=== PATIENT | male | born 1945 | race Caucasian/White ===

== ENCOUNTER 2018-05-27 00:21 | Emergency (ER) | payer MEDICARE, BC, OTHER ==
[~2018-05-27] VITALS: Ht 177.8 cm; Wt 96.0 kg
[2018-05-27 00:26] VITALS: BP 128/92
[2018-05-27] MEDS ORDERED: LIDO5CRE18 TOP (01:57)
== END 2018-05-27 02:09 | disposition home or self-care (01) ==
LOC: ER 00:21
DX: K64.9 Unspecified hemorrhoids (principal); I10 Essential (primary) hypertension; Z79.899 Other long term (current) drug therapy
CPT/HCPCS: 99283

== ENCOUNTER 2019-07-29 19:37 | Emergency (ER) | payer MEDICARE, BC ==
[~2019-07-29] VITALS: Ht 177.8 cm; Wt 97.3 kg
[~2019-07-29 19:37] MED LIST: LIDO5CRE18 TOP
[2019-07-29] MEDS ORDERED: normal saline 1000ML IV soln IVB ONE (19:40)
[2019-07-29 20:11] LABS: BASOPHILS % (AUTO) 0.5 % (0-1); EOSINOPHILS # (AUTO) 0.1 X10'3 (0-0.9); EOSINOPHILS % (AUTO) 0.9 % (0-6); HEMATOCRIT 45.1 % (42.0-52.0); LYMPHOCYTES # (AUTO) 1.2 X10'3 (1.1-4.8); MEAN CORPUSCULAR HGB CONC 35.5 g/dL (33.0-36.5); MEAN CORPUSCULAR VOLUME 84.5 FL (78-98); MONOCYTES % (AUTO) 12.7 % (2-12); NEUTROPHILS # (AUTO) 5.7 X10'3 (1.8-7.7); NEUTROPHILS % (AUTO) 70.9 % (42-75); PLATELET COUNT 186 X10'3 (140-440); RED BLOOD COUNT 5.34 X10'6 (4.70-6.10); RED CELL DISTRIBUTION WIDTH 13.7 % (11.5-14.5); WHITE BLOOD COUNT 8.1 X10'3 (4.5-11.0)
[2019-07-29 20:24] LABS: ALANINE AMINOTRANSFERASE 30 U/L (12-78); ALBUMIN 4.1 G/DL (3.4-5.0); ALKALINE PHOSPHATASE 67 IU/L (46-116); ANION GAP 12 (8-16); ASPARTATE AMINO TRANSFERASE 22 U/L (10-37); BILIRUBIN,TOTAL 0.8 MG/DL (0.1-1.0); BLOOD UREA NITROGEN 19 MG/DL (7-18); BUN/CREATININE RATIO 16.4 (5.4-32.0); CALCIUM 9.9 MG/DL (8.5-10.1); CHLORIDE 102 MMOL/L (99-107); CREATININE 1.16 MG/DL (0.60-1.10); GLUCOSE 110 MG/DL (70-104); POTASSIUM 3.8 MMOL/L (3.5-5.1); SODIUM 138 MMOL/L (135-145); TOTAL CARBON DIOXIDE 24.1 MMOL/L (24-32); TOTAL PROTEIN 8.1 G/DL (6.4-8.2); eGFR 61 ML/MIN
[2019-07-29 20:44] LABS: CLARITY,URINE CLOUDY (Clear); COLOR,URINE YELLOW (Yellow); GLUCOSE, URINE NEGATIVE (Neg); KETONES,URINE NEGATIVE (Neg); LEUKOCYTE ESTERASE ,URINE NEGATIVE (Neg); NITRITES, URINE NEGATIVE (Neg); OCCULT BLOOD,URINE LARGE (Neg); PH,URINE 6.5 (4.8-8.0); PROTEIN,URINE NEGATIVE (Neg); UA COLLECTION TYPE FOLEY CATH; UROBILINOGEN,URINE 0.2 E.U/dL (0.2-1.0)
[2019-07-29 20:54] LABS: SQUAMOUS EPITHELIAL CELL,UR FEW /LPF (FEW)
[2019-07-29 20:55] LABS: BACTERIA,URINE NONE SEEN /HPF (Neg); RBC,URINE TNTC /HPF (0-2); WBC,URINE 0-4 /HPF (0-4)
[2019-07-29 21:28] VITALS: BP 115/78
== END 2019-07-29 21:30 | disposition home or self-care (01) ==
LOC: ER 19:37
DX: R33.9 Retention of urine, unspecified (principal); R30.9 Painful micturition, unspecified; R39.198 Other difficulties with micturition; I10 Essential (primary) hypertension; Z79.899 Other long term (current) drug therapy; Z87.19 Personal history of other diseases of the digestive system
CPT/HCPCS: 36415; 51702; 80053; 81001; 85025; 99284; J7030

== ENCOUNTER 2019-07-30 07:57 | Emergency (ER) | payer MEDICARE, BC ==
[~2019-07-30] VITALS: Ht 177.8 cm; Wt 96.8 kg
[2019-07-30] MEDS ORDERED: HYDROcodone/acetaminophen 5mg/325mg tablet PO ONE (08:25)
--- NOTE | 2019-07-30 09:50 | NUR ---
IRRIGATE BLADDER MANUALLY WITH ONE LITER NS. ABLE TO WITHDRAW BACK THE IRRIGATION FLUID THAT IS LIGHT PINK, NO CLOTS. BLADDER SCAN 490 ML AFTER IRRIGATION. NO URINE IS COMING OUT THROUGH THE CATHETER. URINE IS COMING OUT AROUND THE CATHETER.
[2019-07-30] MEDS ORDERED: normal saline 1000ML IV soln IVB ONE (10:20)
[2019-07-30] MEDS ORDERED: LORazepam 2 mg/ml vial IV ONE (10:20)
[2019-07-30] MEDS: morphine 2 MG/ML inj. syringe IV PRN ×2 (10:34→11:20)
[2019-07-30] MEDS ORDERED: iohexol 300mg/ml 100ml inj. ONE (10:38)
--- NOTE | 2019-07-30 10:43 | NUR ---
PT MEDICATED WITH MORPHINE FOR PAIN, LABS DRAWN AND PT TAKEN OUT TO CT VIA GURNEY BY TECH.
[2019-07-30 10:51] LABS: BASOPHILS # (AUTO) 0.1 X10'3 (0-0.2); BASOPHILS % (AUTO) 0.7 % (0-1); EOSINOPHILS # (AUTO) 0.1 X10'3 (0-0.9); EOSINOPHILS % (AUTO) 0.6 % (0-6); HEMATOCRIT 44.2 % (42.0-52.0); HEMOGLOBIN 15.4 g/dl (14.0-17.9); LYMPHOCYTES # (AUTO) 0.9 X10'3 (1.1-4.8); LYMPHOCYTES % (AUTO) 10.9 % (21-51); MEAN CORPUSCULAR HEMOGLOBIN 29.6 PG (27.0-31.0); MEAN CORPUSCULAR HGB CONC 34.7 g/dL (33.0-36.5); MEAN CORPUSCULAR VOLUME 85.2 FL (78-98); MEAN PLATELET VOLUME 6.9 FL (7.4-10.4); MONOCYTES # (AUTO) 0.9 X10'3 (0-0.9); NEUTROPHILS # (AUTO) 6.4 X10'3 (1.8-7.7); NEUTROPHILS % (AUTO) 76.8 % (42-75); PLATELET COUNT 173 X10'3 (140-440); RED BLOOD COUNT 5.19 X10'6 (4.70-6.10); RED CELL DISTRIBUTION WIDTH 13.3 % (11.5-14.5); WHITE BLOOD COUNT 8.3 X10'3 (4.5-11.0)
[2019-07-30 11:06] LABS: ALANINE AMINOTRANSFERASE 26 U/L (12-78); ALBUMIN 3.6 G/DL (3.4-5.0); ALBUMIN/GLOBULIN RATIO 0.9 (1.1-1.5); ALKALINE PHOSPHATASE 61 IU/L (46-116); ANION GAP 8 (8-16); ASPARTATE AMINO TRANSFERASE 21 U/L (10-37); BILIRUBIN,TOTAL 0.9 MG/DL (0.1-1.0); BLOOD UREA NITROGEN 13 MG/DL (7-18); BUN/CREATININE RATIO 12.6 (5.4-32.0); CALCIUM 9.1 MG/DL (8.5-10.1); CHLORIDE 105 MMOL/L (99-107); CREATININE 1.03 MG/DL (0.60-1.10); GLUCOSE 104 MG/DL (70-104); POTASSIUM 3.6 MMOL/L (3.5-5.1); SODIUM 138 MMOL/L (135-145); TOTAL CARBON DIOXIDE 24.8 MMOL/L (24-32); TOTAL PROTEIN 7.4 G/DL (6.4-8.2); eGFR 70 ML/MIN
--- NOTE | 2019-07-30 12:09 | NUR ---
REMOVE PTS TORRES CATHER THAT PT HAD UPON ARRIVAL DUE TO NO URINE DRAINAGE. FC IS REMOVED A LARGE BLOOD CLOT COMES OUT AND THEN THE BLADDER IS DRAINED BY RN. REINSERT A 3 WAY 24 GUAGE CATHETER FOR IRRIGATION. BEGIN IRRIGATION WITH A 3000 ML BAG OF SALINE. URINE IS LIGHT PINK W/O ANY CLOTS.
--- NOTE | 2019-07-30 12:30 | NUR ---
PT HAS HIS OWN BOTTLE OF KEFLEX WITH HIM AND ADMINISTER HIS DOSE THAT IS DUE NOW. VALDO TODD.
[2019-07-30 13:05] VITALS: BP 119/74
== END 2019-07-30 13:07 | disposition home or self-care (01) ==
LOC: ER 07:57
DX: T83.098A Other mechanical complication of other urinary catheter, initial encounter (principal); R33.8 Other retention of urine; R31.9 Hematuria, unspecified; I10 Essential (primary) hypertension; Z79.899 Other long term (current) drug therapy; Y84.6 Urinary catheterization as the cause of abnormal reaction of the patient, or of later complication, without mention of misadventure at the time of the procedure; Y92.89 Other specified places as the place of occurrence of the external cause
CPT/HCPCS: 36415; 51700; 74177; 80053; 85025; 96374; 96376; 99284; J2270; J7030; Q9967

== ENCOUNTER 2019-08-03 02:04 | Emergency (ER) | payer MEDICARE, BC ==
[~2019-08-03] VITALS: Ht 177.8 cm; Wt 96.8 kg
[2019-08-03] MEDS ORDERED: normal saline 1000ML IV soln IVB ONE (02:35)
--- NOTE | 2019-08-03 03:00 | NUR ---
bladder scan showing [address] c[address] (in place user acceptance tester) irrigated with sterile water and some small clots noted. then cbi started. dr waitefs at bedside to reevaluate.
--- NOTE | 2019-08-03 04:13 | NUR ---
cbi continues, nw running clear no clots noted.
[2019-08-03 05:14] VITALS: BP 127/80
== END 2019-08-03 05:16 | disposition home or self-care (01) ==
LOC: ER 02:04
DX: R31.9 Hematuria, unspecified (principal); T83.098A Other mechanical complication of other urinary catheter, initial encounter; I10 Essential (primary) hypertension; Y92.89 Other specified places as the place of occurrence of the external cause
CPT/HCPCS: 51700; 99284; J7030

== ENCOUNTER 2019-08-03 11:05 | Emergency (ER) | payer MEDICARE, BC ==
[~2019-08-03] VITALS: Ht 177.8 cm; Wt 96.8 kg
[2019-08-03 11:45] VITALS: BP 172/94
--- NOTE | 2019-08-03 12:18 | NUR ---
Bladder scan showed 610ml in bladder.
--- NOTE | 2019-08-03 13:00 | NUR ---
PT UP TO BR FOR BM. PT STATES WHEN HE SAT TO HAVE A BM "ALL OF A SUDDEN THE CATHATER STARTED FLOWING" PT STATES HE SAW SOME CLOTS. LIGHT PINK URINE NOTED IN TUBE
--- NOTE | 2019-08-03 13:33 | NUR ---
CATH IRRIGATED WITH 60ML OF NS WITH OUT DIFFICULITY.
--- NOTE | 2019-08-03 14:54 | NUR ---
DR SORENSEN IN TO SEE PT, SHE CHANGED CATH, IRRIGATED IT MULTIPLE TIMES. PT STATES PAIN IMPROVED AFTER CATH CHANGE. PINK URINE DRAINING WELL FROM CATH
== END 2019-08-03 15:15 | disposition home or self-care (01) ==
LOC: ER 11:06
DX: T83.84XA Pain due to genitourinary prosthetic devices, implants and grafts, initial encounter (principal); R33.9 Retention of urine, unspecified; I10 Essential (primary) hypertension; Z79.899 Other long term (current) drug therapy; Y84.6 Urinary catheterization as the cause of abnormal reaction of the patient, or of later complication, without mention of misadventure at the time of the procedure; Y92.89 Other specified places as the place of occurrence of the external cause
CPT/HCPCS: 51700; 51702; 99284

== ENCOUNTER 2019-08-16 05:38 | Day surgery (SDC) | payer MEDICARE, BC ==
[2019-08-12 15:29] LABS: BASOPHILS # (AUTO) 0.1 X10'3 (0-0.2); BASOPHILS % (AUTO) 0.7 % (0-1); EOSINOPHILS # (AUTO) 0.2 X10'3 (0-0.9); EOSINOPHILS % (AUTO) 1.5 % (0-6); LYMPHOCYTES # (AUTO) 1.7 X10'3 (1.1-4.8); LYMPHOCYTES % (AUTO) 16.6 % (21-51); MEAN CORPUSCULAR HEMOGLOBIN 29.1 PG (27.0-31.0); MEAN CORPUSCULAR HGB CONC 35.1 g/dL (33.0-36.5); MEAN CORPUSCULAR VOLUME 82.9 FL (78-98); MEAN PLATELET VOLUME 6.8 FL (7.4-10.4); MONOCYTES % (AUTO) 10.4 % (2-12); NEUTROPHILS # (AUTO) 7.1 X10'3 (1.8-7.7); NEUTROPHILS % (AUTO) 70.8 % (42-75); PRE OP HEMATOCRIT 46.7 % (42.0-52.0); PRE OP HEMOGLOBIN 16.4 g/dL (14.0-17.9); PRE OP PLATELET COUNT 412 X10'3 (140-440); RED BLOOD COUNT 5.63 X10'6 (4.70-6.10); RED CELL DISTRIBUTION WIDTH 12.8 % (11.5-14.5)
[2019-08-12 15:39] LABS: PRE OP INR 1.1 INR; PRE OP PROTIME 11.3 SECONDS (9.0-12.0)
[2019-08-12 15:45] LABS: ALBUMIN 3.9 G/DL (3.4-5.0); ALKALINE PHOSPHATASE 74 IU/L (46-116); BLOOD UREA NITROGEN 22 MG/DL (7-18); BUN/CREATININE RATIO 17.2 (5.4-32.0); CALCIUM 9.4 MG/DL (8.5-10.1); CHLORIDE 100 MMOL/L (99-107); CREATININE 1.28 MG/DL (0.60-1.10); PRE OP ALT 35 U/L (30-65); PRE OP ANION GAP 7 (8-16); PRE OP AST 20 U/L (10-37); PRE OP BILIRUB, TOTAL 0.7 MG/DL (0.0-1.0); PRE OP GLUCOSE 94 MG/DL (70-104); PRE OP POTASSIUM 3.8 MMOL/L (3.4-5.1); PRE OP SODIUM 134 MMOL/L (135-145); TOTAL CARBON DIOXIDE 27.5 MMOL/L (24-32); TOTAL PROTEIN 7.9 G/DL (6.4-8.2); eGFR 55 ML/MIN
[~2019-08-16] VITALS: Ht 177.8 cm; Wt 93.0 kg
[2019-08-16] VITALS (10 sets, daily range): BP systolic 101–121; BP diastolic 64–84
[~2019-08-16 05:38] MED LIST changes: +ATEN50TA PO; +DOCUMENT DATE & TIME OF BETA-BLOCKER PO ONE; +FINA5TAB11 PO; +FLO0.4C PO; +HYDR12.55 PO; -LIDO5CRE18 TOP; +QUIN10TA PO; +ceFAZolin 1GM/D5W- ADD-VANTAGE 50 ML IV ONE; +famotidine 20mg tablet PO ONE; +ringers solution, lacted 1,000 ML IV SCH
[2019-08-16] MEDS ORDERED: fentaNYL/PF 50MCG/1 ML 2ML syringe ONE (07:31)
[2019-08-16] MEDS ORDERED: MIDAZolam 5mg/5ml vial ONE (07:32)
[2019-08-16] MEDS ORDERED: ondansetron/PF 4mg/2ml inj IV PRN (08:10)
[2019-08-16] MEDS ORDERED: ringers solution, lacted 1,000 ML IV SCH (08:10)
[2019-08-16] MEDS ORDERED: morphine 4 MG/ML inj SYRINge IV PRN (08:10)
[2019-08-16] MEDS ORDERED: diphenhydrAMINE 50 mg/ml inj ONE (08:26)
[2019-08-16] MEDS ORDERED: meperidine/PF 50mg/ml syringe ONE (08:44)
--- NOTE | 2019-08-16 08:50 | NUR ---
Received from OR via , accompanied by Anesthesiologist CHAGO and report given by Anesthesiolgist. PATIENT A&OX4, DENIES PAIN, V/S WNL, SCD ON, 20G PIV RUE, PATIENT DENIES PAIN, 3 WAY F/C WITH FRANCISCO LIGHT CLEAR URINE
[2019-08-16] MEDS ORDERED: ceFAZolin 1000mg inj ONE (09:20)
--- NOTE | 2019-08-16 10:50 | NUR ---
PATIENT A&OX4, DENIES PAIN, V/S WNL, SCD OFF, 20G PIV RUE D/C, PATIENT DENIES PAIN, 3 WAY F/C WITH FRANCISCO LIGHT CLEAR URINE WITH LEG BAG ATTATCHED AND PATIENT GIVEN INSTRUCTION ON HOW TO USE AND CLEAN AND DRAIN LEG BAG AND HE HAS VERBALIZED UNDERSTANDING. I HAVE REVIEWED D/C INSTRUCTIONS WITH PATIENT AND FAMILYAND GIVEN THEM SCRIPTS FOR HOME AND THEY HAVE VERBALIZED UNDERSTANDING. PATIENT D/C HOME WITH ALL BELONGINGS AND FAMILY GAVE TRANSPORT HOME.
== END 2019-08-16 10:50 | disposition home or self-care (01) ==
LOC: PAS 05:38
PROVIDERS: ATTEND Student in an Organized Health Care Education/Training Program
DX: R31.0 Gross hematuria (principal); N32.89 Other specified disorders of bladder; I10 Essential (primary) hypertension; N40.1 Benign prostatic hyperplasia with lower urinary tract symptoms; R33.9 Retention of urine, unspecified; K21.9 Gastro-esophageal reflux disease without esophagitis; Z79.899 Other long term (current) drug therapy; Z87.891 Personal history of nicotine dependence
CPT/HCPCS: 36415; 52204; 80053; 82948; 85025; 85610; 85730; 93005; J0690; J1200; J2175; J2250; J3010; A4346; J7120

== ENCOUNTER 2019-09-24 02:44 | Emergency (ER) | payer MEDICARE, BC ==
[~2019-09-24] VITALS: Ht 177.8 cm; Wt 85.5 kg
[~2019-09-24 02:44] MED LIST changes: -DOCUMENT DATE & TIME OF BETA-BLOCKER PO ONE; -ceFAZolin 1GM/D5W- ADD-VANTAGE 50 ML IV ONE; -famotidine 20mg tablet PO ONE; -ringers solution, lacted 1,000 ML IV SCH
--- NOTE | 2019-09-24 03:15 | NUR ---
BLADDER SCAN SHOWED 529ML IN BLADDER, INFORMED DR NICK SHE ORDERED FOR A CATHETER TO BE PLACED. PATIENT REFUSED, STATING THAT HE ONLY WANTED DR SORENSEN HIS UROLOGIST TO PLACE A CATHETER AND REQUESTED TO SPEAK TO DR NICK. DR NICK AWARE
[2019-09-24] MEDS ORDERED: LIDOcaine 2% 10ml TOPICAL JELLY (Urojet) MM ONE (03:20)
[2019-09-24 03:23] LABS: CLARITY,URINE CLOUDY (Clear); COLOR,URINE YELLOW (Yellow); GLUCOSE, URINE NEGATIVE (Neg); KETONES,URINE NEGATIVE (Neg); LEUKOCYTE ESTERASE ,URINE LARGE (Neg); NITRITES, URINE NEGATIVE (Neg); OCCULT BLOOD,URINE LARGE (Neg); PROTEIN,URINE 30 mg/dl (Neg); UROBILINOGEN,URINE 0.2 E.U/dL (0.2-1.0)
[2019-09-24 03:40] LABS: UA COLLECTION TYPE CLN CATCH MIDSTREAM
[2019-09-24 04:18] LABS: BACTERIA,URINE 2+ /HPF (Neg); SQUAMOUS EPITHELIAL CELL,UR FEW /LPF (FEW); WBC,URINE 30-50 /HPF (0-4)
[2019-09-24 05:40] VITALS: BP 119/73
== END 2019-09-24 05:42 | disposition home or self-care (01) ==
LOC: ER 02:44
DX: R33.9 Retention of urine, unspecified (principal); R14.0 Abdominal distension (gaseous); I10 Essential (primary) hypertension; Z79.899 Other long term (current) drug therapy
CPT/HCPCS: 51702; 81001; 87088; 99284

== ENCOUNTER 2022-04-29 10:41 | Inpatient (IN) | payer OTHER, MEDICARE, BC ==
[~2022-04-29] VITALS: Ht 177.8 cm; Wt 97.6 kg
[2022-04-29] MEDS ORDERED: heparin 10,000 units/1 ML INJ IV ONE (11:10)
[2022-04-29] MEDS ORDERED: aspirin 325mg tablet PO ONE (11:10)
[2022-04-29] MEDS: HEPARIN SOD,PORK IN 0.45% NACL 250 ML IV SCH (11:41)
[2022-04-29] MEDS ORDERED: atorvastatin 20mg tablet PO STA (11:52)
[2022-04-29 12:01] LABS: BASOPHILS # (AUTO) 0.1 X10'3 (0-0.2); BASOPHILS % (AUTO) 1.2 % (0-1); EOSINOPHILS # (AUTO) 0.1 X10'3 (0-0.9); EOSINOPHILS % (AUTO) 1.9 % (0-6); HEMATOCRIT 45.9 % (42.0-52.0); HEMOGLOBIN 15.6 g/dl (14.0-17.9); LYMPHOCYTES # (AUTO) 1.5 X10'3 (1.1-4.8); LYMPHOCYTES % (AUTO) 19.8 % (21-51); MEAN CORPUSCULAR HEMOGLOBIN 28.9 PG (27.0-31.0); MEAN CORPUSCULAR HGB CONC 34.1 g/dL (33.0-36.5); MEAN CORPUSCULAR VOLUME 84.7 FL (78-98); MEAN PLATELET VOLUME 7.3 FL (7.4-10.4); MONOCYTES # (AUTO) 0.8 X10'3 (0-0.9); NEUTROPHILS % (AUTO) 66.1 % (42-75); PLATELET COUNT 208 X10'3 (140-440); RED BLOOD COUNT 5.42 X10'6 (4.70-6.10); RED CELL DISTRIBUTION WIDTH 14.4 % (11.5-14.5); WHITE BLOOD COUNT 7.6 X10'3 (4.5-11.0)
[2022-04-29 12:06] LABS: APTT 25 SECONDS (22-32)
[2022-04-29 12:08] LABS: ALANINE AMINOTRANSFERASE 38 U/L (12-78); ALBUMIN/GLOBULIN RATIO 1.2 (1.1-1.5); ALKALINE PHOSPHATASE 63 IU/L (46-116); ANION GAP 4 (8-16); ASPARTATE AMINO TRANSFERASE 32 U/L (10-37); BILIRUBIN,TOTAL 0.5 MG/DL (0.1-1.0); BLOOD UREA NITROGEN 20 MG/DL (7-18); BUN/CREATININE RATIO 18.9 (5.4-32.0); CALCIUM 8.9 MG/DL (8.5-10.1); CHLORIDE 107 MMOL/L (99-107); CREATININE 1.06 MG/DL (0.60-1.10); GLUCOSE 106 MG/DL (70-104); POTASSIUM 4.4 MMOL/L (3.5-5.1); SODIUM 138 MMOL/L (135-145); TOTAL CARBON DIOXIDE 27.1 MMOL/L (24-32); TOTAL PROTEIN 7.4 G/DL (6.4-8.2); eGFR 68 ML/MIN
[2022-04-29 12:12] LABS: MAGNESIUM 2.1 MG/DL (1.5-2.4)
[2022-04-29] MEDS ORDERED: POTASSIUM BICARB 20meq eff tab 20 MEQ TABLET.EFF PO PRN ×2 (12:35)
[2022-04-29] MEDS ORDERED: potassium CL 10mEq/100ml bag 100 ML IV PRN (12:35)
[2022-04-29] MEDS ORDERED: magnesium 2GM in 50ml NS 50 ML IV PRN (12:35)
[2022-04-29] MEDS ORDERED: magnesium 4gm in 100ml NS 100 ML IV PRN (12:35)
[2022-04-29] MEDS ORDERED: morphine 2 MG/ML inj. syringe IV PRN ×2 (12:35)
[2022-04-29] MEDS ORDERED: HEPARIN SOD,PORK IN 0.45% NACL 250 ML IV SCH (12:35)
[2022-04-29] MEDS ORDERED: acetaminophen 325mg tablet PO PRN (12:35)
[2022-04-29] MEDS ORDERED: ondansetron/PF 4mg/2ml inj IV PRN (12:35)
[2022-04-29] MEDS ORDERED: docusate sod 100mg capsule PO PRN (12:35)
[2022-04-29] MEDS ORDERED: mag hydrox/Alum hydrox/simeth 30ml oral suspension PO PRN (12:35)
[2022-04-29] MEDS: nitroGLYCERIN 0.4mg/hour patch TD SCH (13:59)
--- NOTE | 2022-04-29 14:36 | NUR ---
report given to RN at this time. cleard for transfer to [id number]
[2022-04-29 15:00] VITALS: BP 100/66
[2022-04-29] MEDS ORDERED: nitroGLYCERIN 0.4mg SUBLingual tab SL PRN (15:00)
[2022-04-29] MEDS ORDERED: aminophylline 500mg/20ml vial IV PRN (15:00)
[2022-04-29] MEDS ORDERED: metoprolol tartrate 1mg/ml inj IV PRN (15:00)
[2022-04-29] MEDS ORDERED: regadenoson 0.4mg/5ml syringe IV PRN (15:00)
--- NOTE | 2022-04-29 15:45 | NUR ---
Pt. admitted to room 3018B. VS taken. Pt. denies pain at this time. Tele placed. HR in 40s-50s. Pt. very anxious asking about how life threatening his heparin is and wanting to know exact amount infused. Pt. reassured. Full physical assessment completed. Pt. stable at this time. Wants to know when Addendum: 04/29/22 at 1549 by Ángela Conner RN MD Brownlee will round. Assured pt. would find out for him. Kem called back and states to notify hospitalist about bradycardia and that he was not sure when he would round. Will update pt. after speaking to hospitalist.
--- NOTE | 2022-04-29 15:53 | NUR ---
PAGER ID: [phone] MESSAGE: Steve Johnny [phone] Pt. very anxious. Wants to know POC and when next MD will round on him. HR in 40s-50s. Pt. did take daily atenolol 50mg in AM. Med req. ready for you to address. Thank you Ángela [phone]
--- NOTE | 2022-04-29 17:55 | NUR ---
Called lab. Was told that there were other draws and tech would get there when she got there.
--- NOTE | 2022-04-29 18:20 | NUR ---
Called lab to clarify about cardiac PTT lab draw. Per tech there has been no blast hole driller between 1730 and 1830 but she will let the tech coming on know to come draw this pt. 1st.
--- NOTE | 2022-04-29 18:26 | NUR ---
Gave report to Cori CLIFFORD.
[2022-04-29] MEDS: K and/or MAG REPLACEMENT MC SCH (20:00)
[2022-04-29] MEDS ORDERED: zolpidem 5mg tablet PO PRN (20:00)
[2022-04-29] MEDS: heparin 10,000 units/1 ML INJ IV PRN (20:07)
[2022-04-29] MEDS: tamsulosin 0.4mg capsule PO SCH (20:08)
[2022-04-29 22:00] VITALS: BP 95/56
[2022-04-30] VITALS (11 sets, daily range): BP systolic 12–110; BP diastolic 46–70
[2022-04-30 02:56] LABS: APTT 36 SECONDS (22-32)
[2022-04-30 03:21] LABS: ALBUMIN 3.7 G/DL (3.4-5.0); ANION GAP 9 (8-16); BLOOD UREA NITROGEN 15 MG/DL (7-18); BUN/CREATININE RATIO 13.9 (5.4-32.0); CALCIUM 8.8 MG/DL (8.5-10.1); CHLORIDE 105 MMOL/L (99-107); CREATININE 1.08 MG/DL (0.60-1.10); GLUCOSE 120 MG/DL (70-104); MAGNESIUM 1.9 MG/DL (1.5-2.4); SODIUM 137 MMOL/L (135-145); TOTAL CARBON DIOXIDE 23.1 MMOL/L (24-32); TOTAL PROTEIN 7.1 G/DL (6.4-8.2); eGFR 66 ML/MIN
[2022-04-30 03:22] LABS: ALANINE AMINOTRANSFERASE 47 U/L (12-78); ALBUMIN/GLOBULIN RATIO 1.1 (1.1-1.5); ALKALINE PHOSPHATASE 57 IU/L (46-116); ASPARTATE AMINO TRANSFERASE 128 U/L (10-37); CHOL/HDL RATIO 3.2 (0.00-4.99); CHOLESTEROL 123 MG/DL (0-200); HDL CHOLESTEROL 38 MG/DL (35-60); LDL CHOLESTEROL 74 MG/DL (50-100); TRIGLYCERIDES 110 MG/DL (20-135)
--- NOTE | 2022-04-30 03:31 | NUR ---
Attempted to call Dr. Brownlee theatre program director [place] [address] @ 1470, no answer.
--- NOTE | 2022-04-30 03:54 | NUR ---
Attempted to call Dr. Brownlee chief station engineer 2nd time to report critical troponin level, no answer.
--- NOTE | 2022-04-30 04:06 | NUR ---
Attempted to call Dr. Brownlee pumper head to report critical troponin 3rd time, no answer.
[2022-04-30] MEDS: heparin 10,000 units/1 ML INJ IV PRN (04:20)
--- NOTE | 2022-04-30 04:48 | NUR ---
Dr. Ragsdale notified of critical troponin. Ordered infusion NS @ 100ml/hr. Will continue to monitor.
[2022-04-30] MEDS ORDERED: normal saline 1000ml 1,000 ML IV SCH ×2 (04:50→14:30)
[2022-04-30 07:19] LABS: BASOPHILS # (AUTO) 0.1 X10'3 (0-0.2); BASOPHILS % (AUTO) 0.5 % (0-1); EOSINOPHILS # (AUTO) 0.1 X10'3 (0-0.9); EOSINOPHILS % (AUTO) 0.7 % (0-6); HEMATOCRIT 43.9 % (42.0-52.0); HEMOGLOBIN 15.4 g/dl (14.0-17.9); LYMPHOCYTES # (AUTO) 1.4 X10'3 (1.1-4.8); LYMPHOCYTES % (AUTO) 12.8 % (21-51); MEAN CORPUSCULAR HEMOGLOBIN 29.3 PG (27.0-31.0); MEAN CORPUSCULAR VOLUME 83.7 FL (78-98); MEAN PLATELET VOLUME 7.6 FL (7.4-10.4); MONOCYTES # (AUTO) 0.9 X10'3 (0-0.9); MONOCYTES % (AUTO) 8.8 % (2-12); NEUTROPHILS # (AUTO) 8.3 X10'3 (1.8-7.7); NEUTROPHILS % (AUTO) 77.2 % (42-75); PLATELET COUNT 183 X10'3 (140-440); RED BLOOD COUNT 5.24 X10'6 (4.70-6.10); RED CELL DISTRIBUTION WIDTH 14.1 % (11.5-14.5); WHITE BLOOD COUNT 10.8 X10'3 (4.5-11.0)
--- NOTE | 2022-04-30 07:43 | NUR ---
Patient in room PCU 3018. I have received report from DARRIN UMANA, and had the opportunity to ask questions and assume patient care.
--- NOTE | 2022-04-30 07:45 | NUR ---
PAGE SENT PAGER ID: [phone] MESSAGE: [id number], MIGUEL ANGEL ZAVALETA, CRITICAL LAB - K 2.6 THANK YOU, ARLENE [phone] Addendum: 04/30/22 at 0748 by Arlene Erickson RN WRONG PT
[2022-04-30] MEDS ORDERED: lisinopril 20mg tablet PO SCH (08:00)
[2022-04-30] MEDS: K and/or MAG REPLACEMENT MC SCH ×2 (08:00→20:27)
[2022-04-30] MEDS: finasteride 5mg tablet PO SCH (08:18)
[2022-04-30] MEDS: nitroGLYCERIN 0.4mg/hour patch TD SCH (08:21)
--- NOTE | 2022-04-30 09:02 | NUR ---
PAGE SENT PAGER ID: [phone] MESSAGE: [id number], OSMAN HANDLEY, [id number] TROPS - [phone]. [phone] EKG IN CHART. ARE WE STILL PLANNING TO TRANSFER PT TO [facility]? THANK YOU, ROGER [phone]
[2022-04-30] MEDS ORDERED: LIDOcaine 1% 30ml preserv. free vial ONE (10:54)
[2022-04-30] MEDS ORDERED: midazolam 1 mg/ML 2ml injection ONE ×3 (10:54→11:36)
[2022-04-30] MEDS ORDERED: fentaNYL/PF 50MCG/1 ML 2ML syringe ONE (10:54)
[2022-04-30] MEDS ORDERED: heparin 1,000unit/ml 10ml vial 10 ML ONE (10:54)
[2022-04-30] MEDS ORDERED: iohexol 350MG/ML 100ml bottle IV ONE ×2 (10:54→12:02)
[2022-04-30 10:59] LABS: APTT 45 SECONDS (22-32)
[2022-04-30] MEDS ORDERED: nitroGLYCERIN-Tridil 50MG/D5W 250 ML IV ONE (11:14)
[2022-04-30] MEDS ORDERED: verapamil 2.5 mg/ml inj IV ONE (11:14)
[2022-04-30] MEDS ORDERED: ticagrelor 90mg tablet ONE (12:31)
[2022-04-30] MEDS ORDERED: aspirin 325mg tablet ONE (12:32)
[2022-04-30] MEDS: HEPARIN SOD,PORK IN 0.45% NACL 250 ML IV SCH (13:08)
[2022-04-30] MEDS ORDERED: HYDROcodone/acetaminophen 5mg/325mg tablet PO PRN (14:30)
[2022-04-30] MEDS ORDERED: ondansetron/PF 4mg/2ml inj IV PRN (14:30)
[2022-04-30] MEDS ORDERED: HYDROcodone/acetaminophen 10/325mg tab PO PRN (14:30)
[2022-04-30] MEDS ORDERED: aspirin 81mg tab.chew PO ONE (14:35)
--- NOTE | 2022-04-30 18:30 | NUR ---
1600 POST PROCEDURE SBP 120, NOT 12.
--- NOTE | 2022-04-30 18:40 | NUR ---
Problems reprioritized. Patient report given, questions answered & plan of care reviewed with DARRIN STACK.
[2022-04-30] MEDS: tamsulosin 0.4mg capsule PO SCH (20:26)
--- NOTE | 2022-04-30 22:39 | NUR ---
BP 81/48 (57), pt alert and awake, asymptomatic. Attempted to call Dr. Brownlee with cardiology to notify of drop in BP, no answer.
[2022-04-30] MEDS ORDERED: ringers solution, lacted 1,000 ML IV ONE (23:20)
[2022-05-01 00:55] VITALS: BP 90/52
[2022-05-01 02:00] VITALS: BP 97/58
[2022-05-01 02:24] LABS: CLARITY,URINE CLEAR (Clear); COLOR,URINE YELLOW (Yellow); GLUCOSE, URINE NEGATIVE (Neg); KETONES,URINE NEGATIVE (Neg); LEUKOCYTE ESTERASE ,URINE NEGATIVE (Neg); NITRITES, URINE NEGATIVE (Neg); OCCULT BLOOD,URINE NEGATIVE (Neg); PH,URINE 6.5 (4.8-8.0); PROTEIN,URINE NEGATIVE (Neg)
[2022-05-01 02:28] LABS: UA COLLECTION TYPE VOIDED
--- NOTE | 2022-05-01 06:27 | NUR ---
Patient in room PCU 3018. I have received report from Cori CLIFFORD and had the opportunity to ask questions and assume patient care.
[2022-05-01 07:07] VITALS: BP 111/66
[2022-05-01 07:25] LABS: BASOPHILS % (AUTO) 0.4 % (0-1); EOSINOPHILS % (AUTO) 0.5 % (0-6); HEMATOCRIT 38.9 % (42.0-52.0); HEMOGLOBIN 13.9 g/dl (14.0-17.9); LYMPHOCYTES # (AUTO) 1.1 X10'3 (1.1-4.8); LYMPHOCYTES % (AUTO) 11.3 % (21-51); MEAN CORPUSCULAR HEMOGLOBIN 29.7 PG (27.0-31.0); MEAN CORPUSCULAR HGB CONC 35.7 g/dL (33.0-36.5); MEAN CORPUSCULAR VOLUME 83.2 FL (78-98); MEAN PLATELET VOLUME 7.8 FL (7.4-10.4); MONOCYTES # (AUTO) 1.3 X10'3 (0-0.9); NEUTROPHILS % (AUTO) 73.8 % (42-75); PLATELET COUNT 137 X10'3 (140-440); RED BLOOD COUNT 4.68 X10'6 (4.70-6.10); RED CELL DISTRIBUTION WIDTH 14.2 % (11.5-14.5); WHITE BLOOD COUNT 9.5 X10'3 (4.5-11.0)
[2022-05-01 07:46] LABS: ALANINE AMINOTRANSFERASE 46 U/L (12-78); ALBUMIN 3.3 G/DL (3.4-5.0); ALKALINE PHOSPHATASE 50 IU/L (46-116); ANION GAP 10 (8-16); ASPARTATE AMINO TRANSFERASE 141 U/L (10-37); BILIRUBIN,TOTAL 1.5 MG/DL (0.1-1.0); BLOOD UREA NITROGEN 14 MG/DL (7-18); BUN/CREATININE RATIO 13.1 (5.4-32.0); CALCIUM 8.6 MG/DL (8.5-10.1); CHLORIDE 109 MMOL/L (99-107); CREATININE 1.07 MG/DL (0.60-1.10); GLUCOSE 113 MG/DL (70-104); MAGNESIUM 1.9 MG/DL (1.5-2.4); POTASSIUM 3.8 MMOL/L (3.5-5.1); SODIUM 139 MMOL/L (135-145); TOTAL CARBON DIOXIDE 19.8 MMOL/L (24-32); TOTAL PROTEIN 6.7 G/DL (6.4-8.2); eGFR 67 ML/MIN
[2022-05-01] MEDS ORDERED: atorvastatin 20mg tablet PO SCH (08:00)
[2022-05-01] MEDS ORDERED: aspirin 81mg, enteric-coated 1 TAB TABLET.DR PO SCH (08:00)
[2022-05-01] MEDS ORDERED: ticagrelor 90mg tablet PO SCH (08:00)
[2022-05-01] MEDS: K and/or MAG REPLACEMENT MC SCH (08:00)
--- NOTE | 2022-05-01 08:08 | NUR ---
PAGER ID: [phone] MESSAGE: Jose A PCU [phone] re: [id number] Turner. Patient wants discharge. No pain, bp 111/66. Patient moving well. Bruising at cath site no hematoma/pain, equal pedal pulses. Thanks.
[2022-05-01] MEDS: finasteride 5mg tablet PO SCH (08:35)
[2022-05-01] MEDS ORDERED: ATOR20TA66 PO (10:46)
[2022-05-01] MEDS ORDERED: ASPI-1071 PO (10:46)
[2022-05-01] MEDS ORDERED: FURO-150 PO (10:59)
[2022-05-01] MEDS ORDERED: TICA90TA PO (12:09)
--- NOTE | 2022-05-01 12:50 | NUR ---
Patient notified that new medication of brillenta had to be in hand upon picking up patient. At this time this patient family went to the pharmacy to apple picker the medications, all Rx were ready except the brillenta. Patient and family is full aware of the importance of taking this medication. Patient and family are returning to pharmacy after discharge to pick medication up because next dose is needed by 199905/01/22.
--- NOTE | 2022-05-01 15:46 | NUR ---
Patient discharged home with family in room. Discharge teaching was done with family in the room. Patient IVs taken out at the time of discharge no bleeding noted and canula was whole and intact upon discharge. Patient expressed verbal understanding of teaching and left with family at discharge patient walked down to the lobby with all belongings.
== END 2022-05-01 13:38 | disposition home or self-care (01) | DRG 247 ==
LOC: ER 10:42 → ED HOLD 12:36 → EDBEDREQ 14:17 → PCU 3S 15:29
PROVIDERS: ADMIT Family Medicine; ATTEND Internal Medicine
PROC: 4A023N7 Measurement of Cardiac Sampling and Pressure, Left Heart, Percutaneous Approach (ICD-10-PCS; principal; 2022-04-30)
PROC: 027034Z Dilation of Coronary Artery, One Artery with Drug-eluting Intraluminal Device, Percutaneous Approach (ICD-10-PCS; 2022-04-30)
PROC: 02703DZ Dilation of Coronary Artery, One Artery with Intraluminal Device, Percutaneous Approach (ICD-10-PCS; 2022-04-30)
PROC: B2111ZZ Fluoroscopy of Multiple Coronary Arteries using Low Osmolar Contrast (ICD-10-PCS; 2022-04-30)
PROC: B2151ZZ Fluoroscopy of Left Heart using Low Osmolar Contrast (ICD-10-PCS; 2022-04-30)
DX: I21.4 Non-ST elevation (NSTEMI) myocardial infarction (principal); E78.5 Hyperlipidemia, unspecified; I20.0 Unstable angina; E83.110 Hereditary hemochromatosis; I10 Essential (primary) hypertension; K21.9 Gastro-esophageal reflux disease without esophagitis; M25.519 Pain in unspecified shoulder; R00.1 Bradycardia, unspecified; N40.0 Benign prostatic hyperplasia without lower urinary tract symptoms; E66.9 Obesity, unspecified; Z79.02 Long term (current) use of antithrombotics/antiplatelets; Z79.899 Other long term (current) drug therapy; Z80.0 Family history of malignant neoplasm of digestive organs; Z80.3 Family history of malignant neoplasm of breast; Z80.8 Family history of malignant neoplasm of other organs or systems; Z82.0 Family history of epilepsy and other diseases of the nervous system; Z82.3 Family history of stroke; Z82.49 Family history of ischemic heart disease and other diseases of the circulatory system; Z85.820 Personal history of malignant melanoma of skin; Z86.006 Personal history of melanoma in-situ; Z87.891 Personal history of nicotine dependence; Z68.30 Body mass index [BMI] 30.0-30.9, adult
CPT/HCPCS: 93306; 93458; 99285; C9606; 36415; 71045; 80053; 80061; 81003; 83735; 83880; 84443; 84484; 85025; 85610; 85730; 87081; 93005; 99152; 99153; A4620; A5120; A6258; C1725; C1751; C1760; C1769; C1874; C1894; G0378; J1644; J2250; J3010; J3490; J7030; J7120; Q9967

== ENCOUNTER 2023-06-05 10:07 | Outpatient (CLI) | payer OTHER ==
[~2023-06-05 10:07] MED LIST changes: +ASPI-1071 PO; -ATEN50TA PO; +ATOR20TA66 PO; -HYDR12.55 PO; +TICA90TA PO
== END 2023-06-05 23:59 | disposition home or self-care (01) ==
LOC: CARD DIAG 10:07
PROVIDERS: ATTEND Chiropractor
DX: I08.8 Other rheumatic multiple valve diseases (principal); I25.2 Old myocardial infarction
CPT/HCPCS: 93306